=== PATIENT | female | born 2000 | race Caucasian/White ===

== ENCOUNTER 2023-05-16 16:48 | Emergency (ER) | payer OTHER ==
[2023-05-16 16:56] VITALS: BP 132/77; PULSE 130; RESP 18; TEMP 98.2; BMI 27.4
[2023-05-16] MEDS ORDERED: LIDOCAINE 5% TOPICAL PATCH TP ONE (18:34)
[2023-05-16] MEDS ORDERED: CYCLOBENZAPRINE HCL 10 MG TABLET (FP) PO ONE (18:34)
[2023-05-16] MEDS ORDERED: IBUPROFEN 600 MG TABLET (FP) PO ONE ×2 (18:34→18:44)
[2023-05-16] MEDS ORDERED: ACETAMINOPHEN 500 MG TABLET (FP) PO ONE (18:34)
[2023-05-16] MEDS ORDERED: LIDOCAINE 5% TOPICAL PATCH ONE (18:43)
[2023-05-16] MEDS ORDERED: ACETAMINOPHEN 500 MG TABLET (FP) ONE (18:44)
[2023-05-16] MEDS ORDERED: CYCLOBENZAPRINE HCL 10 MG TABLET (FP) ONE (18:44)
[2023-05-17] MEDS ORDERED: LIDOCAINE PATCH REMOVAL MC SCH (06:30)
== END 2023-05-16 20:01 | disposition home or self-care (01) ==
LOC: JERFT 16:48
DX: M25.551 Pain in right hip (principal); M54.50 Low back pain, unspecified; V49.50XA Passenger injured in collision with unspecified motor vehicles in traffic accident, initial encounter
CPT/HCPCS: 72100-TC-FY; 73502-TC-RT-FY; 99283-25

== ENCOUNTER 2024-08-07 17:51 | Emergency (ER) | payer OTHER ==
[2024-08-07 18:01] VITALS: BP 121/74; PULSE 108; RESP 18; TEMP 97.9; BMI 27.4
[2024-08-07] MEDS: SODIUM CHLORIDE 0.9% 500 ML INFUS.BAG IV ONE (19:30)
[2024-08-07] MEDS: ONDANSETRON 4 MG/2 ML VIAL IVPB ONE (19:30)
[2024-08-07] MEDS: ACETAMINOPHEN 1000 MG/100 ML BAG IVPB ONE ×2 (19:30→19:56)
[2024-08-07] MEDS: FAMOTIDINE 20 MG/50 ML IVPB 20 MG/50 ML MG IVPB ONE (19:30)
[2024-08-07] MEDS ORDERED: FAMOTIDINE 20 MG/50 ML IVPB 20 MG/50 ML MG IVPB ONE (19:31)
[2024-08-07] MEDS ORDERED: ONDANSETRON 4 MG/2 ML VIAL ONE (19:31)
[2024-08-07] MEDS ORDERED: ACETAMINOPHEN INJECTION 100 ML ONE (19:31)
[2024-08-07 19:51] LABS: BASO % 0.6 % (0-2.0); EOS % 1.3 % (0-4.5); HEMATOCRIT 37.5 % (32.4-45.2); HEMOGLOBIN 12.4 GM/dL (10.7-15.3); LYMPH % 23.5 % (8-40); MCH 27.8 pg (25.7-33.7); MEAN CELL VOLUME 84.2 fl (80-96); MONO % 5.1 % (3.8-10.2); NEUT % 69.5 % (42.8-82.8); PLATELET COUNT 311 10^3/uL (134-434); RBC 4.45 M/mm3 (3.60-5.2); RDW 14.2 % (11.6-15.6); WHITE BLOOD COUNT 10.6 K/mm3 (4.0-10.0)
[2024-08-07 19:59] LABS: INR 0.96 (0.83-1.09); PROTHROMBIN TIME (PATIENT) 11.1 SEC (9.7-13.0)
[2024-08-07 20:01] LABS: ACTIVATED PTT 33.4 SECONDS (25.2-36.5)
[2024-08-07 20:02] LABS: POTASSIUM 3.6 mmol/L (3.5-5.1)
[2024-08-07 20:04] LABS: CALCIUM 9.3 mg/dL (8.5-10.1)
[2024-08-07 20:05] LABS: ALBUMIN 4.4 g/dl (3.4-5.0); BLOOD UREA NITROGEN 12.6 mg/dL (7-18)
[2024-08-07 20:08] LABS: CREATININE 0.6 mg/dL (0.55-1.3)
[2024-08-07 20:09] LABS: BILIRUBIN,TOTAL 0.6 mg/dL (0.2-1)
[2024-08-07 20:10] LABS: TOT PROT 7.7 g/dl (6.4-8.2)
[2024-08-07 21:20] LABS: EPI CELLS 11 /uL (0-25.1); HYALINE CASTS 0 /uL (0-3.1); PH,URINE 6.5 (5.0-8.0); URINE APPEARANCE CLEAR; URINE BACTERIA 247 /uL (0-1359); URINE BILIRUBIN NEGATIVE (NEGATIVE); URINE COLOR YELLOW; URINE GLUCOSE (UA) NEGATIVE (NEGATIVE); URINE KETONE TRACE (NEGATIVE); URINE LEUK ESTERASE TRACE (NEGATIVE); URINE NITRITE NEGATIVE (NEGATIVE); URINE PROTEIN NEGATIVE (NEGATIVE); URINE RBC 6 /uL (0-23.9); URINE UROBILINOGEN 0.2 mg/dL (0.2-1.0); URINE WBC 41 /uL (0-25.8)
[2024-08-07 21:33] LABS: HCG,QUALITATIVE URINE Negative
[2024-08-07] MEDS ORDERED: ONDANSETRON 4 MG TABLET PO ONE (22:29)
== END 2024-08-07 22:39 | disposition home or self-care (01) ==
LOC: JER 17:51
PROC: 3E033GC Introduction of Other Therapeutic Substance into Peripheral Vein, Percutaneous Approach (ICD-10-PCS; principal; 2024-08-07)
PROC: 3E033NZ Introduction of Analgesics, Hypnotics, Sedatives into Peripheral Vein, Percutaneous Approach (ICD-10-PCS; 2024-08-07)
PROC: 3E033GC Introduction of Other Therapeutic Substance into Peripheral Vein, Percutaneous Approach (ICD-10-PCS; 2024-08-07)
DX: K80.20 Calculus of gallbladder without cholecystitis without obstruction (principal); R10.11 Right upper quadrant pain; R11.0 Nausea; R00.0 Tachycardia, unspecified
CPT/HCPCS: 36415; 76705-TC; 80053; 81003; 83690; 84703; 85025; 85610; 85730; 86850; 86900; 86901; 87086; 99284-25; J0131

== ENCOUNTER 2024-08-15 22:53 | Emergency (ER) | payer OTHER ==
[2024-08-15 23:01] VITALS: BP 100/68; PULSE 118; RESP 16; TEMP 99; BMI 27.4
[2024-08-15] MEDS ORDERED: ONDANSETRON *ODT* 4 MG TABLET ONE (23:28)
[2024-08-15] MEDS: ONDANSETRON *ODT* 4 MG TABLET SL ONE (23:32)
== END 2024-08-16 00:46 | disposition home or self-care (01) ==
LOC: JER 22:53
DX: R11.2 Nausea with vomiting, unspecified (principal)
CPT/HCPCS: 76705-TC; 99284-25; Q0162

== ENCOUNTER 2024-10-10 15:28 | Emergency (ER) | payer OTHER ==
[2024-10-10 15:34] VITALS: BP 121/81; PULSE 82; RESP 18; TEMP 98.6; BMI 26.1
[2024-10-10] MEDS: FAMOTIDINE 20 MG/2.5 ML ORAL LIQUID PEG ONE (17:30)
== END 2024-10-10 17:32 | disposition home or self-care (01) ==
LOC: JERFT 15:28
DX: L50.0 Allergic urticaria (principal)
CPT/HCPCS: 99283-25